=== PATIENT | female | born 1995 | race Caucasian/White ===

== ENCOUNTER 2017-04-12 07:52 | Emergency (ER) | payer MEDICARE ==
[2017-04-12 08:36] LABS: BASOPHIL 0.2 % (0-2); EOSINOPHIL 3.1 % (0-5); HCT 38.8 % (37.0-47.0); HGB 12.9 g/dl (12.5-16.0); MCHC 33.2 g/dL (32.0-36.0); MCV 90.2 fL (78.0-100.0); MONOCYTE 7.6 % (0-12); MPV 10.4 fL (6.0-9.5); NEUTROPHIL 54.1 % (41-80); PLT 240 K/uL (150-400); RDW 11.7 % (11.5-14.0); WBC 10.2 K/uL (4.0-10.5)
[2017-04-12 08:49] LABS: CREATININE 0.7 mg/dL (0.5-1.0)
== END 2017-04-12 09:33 | disposition home or self-care (01) ==
LOC: FER 07:52
PROVIDERS: Internal Medicine
DX: A08.4 Viral intestinal infection, unspecified (principal); F32.9 Major depressive disorder, single episode, unspecified; Z79.899 Other long term (current) drug therapy; Z88.1 Allergy status to other antibiotic agents
CPT/HCPCS: 36415; 80048; 85025; J2405